=== PATIENT | female | born 2000 | race Caucasian/White ===

== ENCOUNTER → 2022-09-20 | Outpatient (CLI) | payer BC ==
--- NOTE | 2022-09-20 14:42 | Diagnostic Imaging Report ---
PROCEDURE: Pelvic comp/transvaginal sonogram. TECHNIQUE: Complete transabdominal and transvaginal pelvic ultrasound was performed. In addition, limited pelvic Doppler was performed. INDICATION: Pelvic pain. Uterus is retroverted measuring 6.2 x 3.3 x 5.0 cm. Myometrium is somewhat heterogeneous but no discrete mass is identified. Endometrium is 4 mm in thickness. The IUD is centered in the endometrial canal. Right ovary measures 2.9 x 2.3 x 2.8 cm and the left ovary measures 2.6 x 1.3 x 2.0 cm. Both ovaries contain small follicles. There is blood flow to both ovaries. No adnexal masses detected. There is a small amount of free fluid in the posterior cul-de-sac. IMPRESSION: Essentially unremarkable transabdominal and transvaginal pelvic ultrasound with limited pelvic Doppler. Dictated by: Dictated on workstation # [id number]
== END ==
LOC: RAD 12:45
PROVIDERS: ATTEND Obstetrics & Gynecology
DX: R10.2 Pelvic and perineal pain (principal)
CPT/HCPCS: 76830; 76856